=== PATIENT | male | born 1945 | race Hispanic/Latino ===

== ENCOUNTER 2022-09-15 11:33 | Inpatient (IN) | payer MEDICARE ==
[2022-09-15] VITALS (18 sets, daily range): BP systolic 74–108; BP diastolic 50–76
[~2022-09-15] VITALS: Ht 175.3 cm; Wt 63.2 kg
[2022-09-15] MEDS ORDERED: CEFTRIAXONE 1 GM VIAL IV SCH (12:00)
[2022-09-15] MEDS ORDERED: SODIUM CHLORIDE 0.9% 1000ML 1,000 ML IV ONE (12:00)
[2022-09-15 12:18] LABS: BASOPHILS % 0.2 % (0.0-1.0); EOSINOPHILS % 0.1 % (0.0-6.0); HEMATOCRIT 44.6 % (38.2-49.6); HEMOGLOBIN 14.2 g/dL (14.0-18.0); LYMPHOCYTES % 9.2 % (18.0-39.1); MEAN CORPUSCULAR HGB CONC 31.8 g/dL (31-35); MEAN CORPUSCULAR VOLUME 94.3 fL (81-99); MONOCYTES # (AUTO) 0.8 (0.2-0.8); MONOCYTES % 7.3 % (4.4-11.3); NEUTROPHILS # (AUTO) 9.1 (2.1-6.9); NEUTROPHILS % 82.7 % (38.7-80.0); PLATELET COUNT 234 x10e3/uL (140-360); RED BLOOD COUNT 4.73 x10e6/uL (4.3-5.7); RED CELL DISTRIBUTION WIDTH 14.5 % (11.7-14.4)
[2022-09-15 12:45] LABS: INR 0.94; PARTIAL THROMBOPLASTIN TIME 30.5 seconds (23.8-35.5); PROTHROMBIN TIME 13.3 seconds (11.9-14.5)
[2022-09-15 12:46] LABS: ABG PCO2 31 mmHg (35-45); ABG PH 7.44 (7.35-7.45)
[2022-09-15 12:47] LABS: ABG HCO3 21 mmol/L (22-26); ABG PO2 50 mmHg (80-105); ABG TCO2 22
[2022-09-15 12:48] LABS: ALBUMIN 3.8 g/dL (3.5-5.0); ANION GAP 23.8 mmol/L (8-16); CREATININE, SERUM 2.01 mg/dL (0.72-1.25); POTASSIUM 3.8 mmol/L (3.5-5.1)
[2022-09-15] MEDS ORDERED: METHYLPREDNISOLONE SOD SUCC 125 MG/2ML VIAL IV ONE (13:00)
[2022-09-15] MEDS ORDERED: NIRMATRELVIR/RITONAVIR 1 EACH BOX PO SCH (13:00)
[2022-09-15] MEDS ORDERED: SODIUM CHLORIDE FLUSH 10 ML SYR INJ PRN (13:45)
[2022-09-15] MEDS ORDERED: BEBTELOVIMAB 175 MG INJ IV ONE (13:45)
[2022-09-15 14:30] LABS: CLARITY,URINE SL CLOUDY (CLEAR); COLOR,URINE STRAW (YELLOW); KETONES,URINE NEGATIVE (NEGATIVE); LEUKOCYTE ESTERASE ,URINE NEGATIVE (NEGATIVE); NITRITE,URINE NEGATIVE (NEGATIVE); PROTEIN,URINE DIPSTICK 1+ (NEGATIVE); URINE UROBILINOGEN 0.2 mg/dL (0.2 - 1)
[2022-09-15 14:42] LABS: AMORPHOUS SEDIMENT,URINE MODERATE (FEW); BACTERIA,URINE MODERATE /HPF; RBC,URINE 0-5 /HPF (0-5)
[2022-09-15] MEDS ORDERED: ACETAMINOPHEN 325 MG TAB PO PRN (15:15)
[2022-09-15] MEDS ORDERED: ZOLPIDEM TARTRATE 5 MG TAB PO PRN (15:15)
[2022-09-15] MEDS ORDERED: ONDANSETRON HCL INJ 2MG/ML 2ML 2 MG/ML VIAL IV PRN (15:15)
[2022-09-15] MEDS ORDERED: DEXTROSE 50% SYRINGE 50 ML IV PRN (15:15)
[2022-09-15] MEDS ORDERED: LACTATED RINGER'S 1,000 ML INJ ONE (15:15)
[2022-09-15] MEDS: INSULIN REGULAR, HUMAN 100 UNIT/1 ML SQ SCH ×2 (16:30→21:00)
[2022-09-15] MEDS ORDERED: REMDESIVIR 200MG 200 MG in SODIUM CHLORIDE 0.9% 100 ML IV ONE (21:00)
[2022-09-15] MEDS ORDERED: MELATONIN 3 MG TAB PO PRN (21:00)
[2022-09-15] MEDS ORDERED: ALBUTEROL/IPRATROPIUM 3 ML NEB NEB PRN (21:00)
[2022-09-15] MEDS ORDERED: GUAIFENESIN/DEXTROMETHORPHAN LIQD 5 ML UDC PO PRN (21:00)
[2022-09-16] VITALS (36 sets, daily range): BP systolic 91–134; BP diastolic 52–87
[2022-09-16] MEDS ORDERED: FUROSEMIDE INJ 10 MG/ML 2 ML VIAL IV ONE (05:30)
[2022-09-16 05:49] LABS: BASOPHILS % 0.1 % (0.0-1.0); HEMOGLOBIN 11.6 g/dL (14.0-18.0); LYMPHOCYTES # (AUTO) 0.3 (1.0-3.2); LYMPHOCYTES % 4.3 % (18.0-39.1); MEAN CORPUSCULAR HEMOGLOBIN 29.4 pg (28-32); MEAN CORPUSCULAR HGB CONC 33.1 g/dL (31-35); MEAN CORPUSCULAR VOLUME 88.8 fL (81-99); MONOCYTES # (AUTO) 0.3 (0.2-0.8); MONOCYTES % 3.9 % (4.4-11.3); NEUTROPHILS # (AUTO) 6.9 (2.1-6.9); NEUTROPHILS % 91.2 % (38.7-80.0); PLATELET COUNT 237 x10e3/uL (140-360); RED BLOOD COUNT 3.94 x10e6/uL (4.3-5.7); RED CELL DISTRIBUTION WIDTH 14.4 % (11.7-14.4)
[2022-09-16 06:19] LABS: ALBUMIN 3.1 g/dL (3.5-5.0); ANION GAP 17.7 mmol/L (8-16); CALCIUM 8.2 mg/dL (8.4-10.2); CREATININE, SERUM 1.97 mg/dL (0.72-1.25); POTASSIUM 3.7 mmol/L (3.5-5.1)
[2022-09-16] MEDS: INSULIN REGULAR, HUMAN 100 UNIT/1 ML SQ SCH ×5 (07:30→21:00)
[2022-09-16] MEDS ORDERED: FUROSEMIDE INJ 10 MG/ML 4 ML VIAL IV ONE ×2 (07:45→13:45)
[2022-09-16 08:25] LABS: ABG HCO3 22 mmol/L (22-26); ABG PCO2 34 mmHg (35-45); ABG PH 7.43 (7.35-7.45); ABG PO2 55 mmHg (80-105); ABG TCO2 23
[2022-09-16] MEDS ORDERED: REMDESIVIR 200MG 200 MG in SODIUM CHLORIDE 0.9% 100 ML IV ONE (09:00)
[2022-09-16] MEDS: MULTIVITAMINS/MINERALS TAB PO SCH (09:00)
[2022-09-16] MEDS ORDERED: PHENAZOPYRIDINE HCL 100 MG TAB PO PRN (13:30)
[2022-09-16] MEDS: DEXMEDETOMIDINE 400MCG/NS100ML 100 ML IV PRN (13:38)
[2022-09-16] MEDS ORDERED: ENOXAPARIN 30 MG/0.3 ML SYR SC SCH (17:00)
[2022-09-16] MEDS: DEXAMETHASONE SOD PHOS 10 MG/1 ML VIAL IV SCH (17:03)
[2022-09-17] VITALS (31 sets, daily range): BP systolic 105–134; BP diastolic 60–111
[2022-09-17] MEDS: DEXMEDETOMIDINE 400MCG/NS100ML 100 ML IV PRN ×2 (05:28→20:07)
[2022-09-17 06:30] LABS: BASOPHILS % 0.1 % (0.0-1.0); HEMATOCRIT 37.3 % (38.2-49.6); HEMOGLOBIN 12.6 g/dL (14.0-18.0); LYMPHOCYTES # (AUTO) 0.3 (1.0-3.2); LYMPHOCYTES % 3.2 % (18.0-39.1); MEAN CORPUSCULAR HEMOGLOBIN 29.9 pg (28-32); MEAN CORPUSCULAR HGB CONC 33.8 g/dL (31-35); MEAN CORPUSCULAR VOLUME 88.4 fL (81-99); MONOCYTES # (AUTO) 0.5 (0.2-0.8); MONOCYTES % 5.1 % (4.4-11.3); NEUTROPHILS # (AUTO) 8.8 (2.1-6.9); NEUTROPHILS % 91.2 % (38.7-80.0); PLATELET COUNT 278 x10e3/uL (140-360); RED BLOOD COUNT 4.22 x10e6/uL (4.3-5.7); RED CELL DISTRIBUTION WIDTH 14.4 % (11.7-14.4)
[2022-09-17 07:01] LABS: ALBUMIN 3.1 g/dL (3.5-5.0); ALBUMIN/GLOBULIN RATIO 0.9 (0.8-2.0); ANION GAP 18.1 mmol/L (8-16); CALCIUM 8.3 mg/dL (8.4-10.2); CREATININE, SERUM 1.98 mg/dL (0.72-1.25); POTASSIUM 3.1 mmol/L (3.5-5.1)
[2022-09-17] MEDS: INSULIN REGULAR, HUMAN 100 UNIT/1 ML SQ SCH ×4 (07:30→21:00)
[2022-09-17 08:43] LABS: LYMPHOCYTES % (MANUAL) 1 % (19-48); MONOCYTES % (MANUAL) 1 % (3.4-9.0); NEUTROPHILS % (MANUAL) 98 % (40-74); PLATELET ESTIMATE ADEQUATE; PLATELET MORPHOLOGY COMMENT NORMAL; RBC MORPHOLOGY COMMENT NORMAL
[2022-09-17] MEDS ORDERED: FUROSEMIDE INJ 10 MG/ML 4 ML VIAL IV SCH (09:00)
[2022-09-17] MEDS: MULTIVITAMINS/MINERALS TAB PO SCH (09:00)
[2022-09-17] MEDS ORDERED: POTASSIUM CHLORIDE 20MEQ/100ML 100 ML IV ONE (09:30)
[2022-09-17] MEDS ORDERED: DEXTROSE 5% 1,000 ML IV ONE ×2 (09:30→16:15)
[2022-09-17 09:37] LABS: ABG HCO3 26 mmol/L (22-26); ABG PCO2 35 mmHg (35-45); ABG PH 7.48 (7.35-7.45); ABG PO2 56 mmHg (80-105); ABG TCO2 27
[2022-09-17] MEDS: REMDESIVIR 100MG 100 MG in SODIUM CHLORIDE 0.9% 100 ML IV SCH (09:45)
[2022-09-17 14:59] LABS: CREATININE,URINE RANDOM 32.85 mg/dL (63-166); TOTAL PROTEIN, URINE 15.7 mg/dL (1-14)
[2022-09-17] MEDS ORDERED: FUROSEMIDE INJ 10 MG/ML 4 ML VIAL IV ONE (16:15)
[2022-09-17] MEDS ORDERED: HEPARIN 25,000 UNIT 1,200 UNIT in DEXTROSE 5% 250ML 250 ML IV SCH (16:15)
[2022-09-17] MEDS ORDERED: METHYLPREDNISOLONE SOD SUCC 40 MG/ML VIAL 1ML IV ONE (16:15)
[2022-09-17] MEDS: DEXAMETHASONE SOD PHOS 10 MG/1 ML VIAL IV SCH (16:49)
[2022-09-17] MEDS ORDERED: HEPARIN SOD (PORCINE) 5,000 UNIT/ML VIAL IV ONE (17:00)
[2022-09-17] MEDS: HEPARIN 25,000 UNIT 1,100 UNIT in DEXTROSE 5% 250ML 250 ML IV SCH (17:04)
[2022-09-17 17:06] LABS: INR 1.16; PARTIAL THROMBOPLASTIN TIME 35.9 seconds (23.8-35.5)
[2022-09-18] VITALS (25 sets, daily range): BP systolic 95–164; BP diastolic 72–119
[2022-09-18 06:45] LABS: BASOPHILS % 0.1 % (0.0-1.0); HEMATOCRIT 40.4 % (38.2-49.6); HEMOGLOBIN 12.9 g/dL (14.0-18.0); LYMPHOCYTES # (AUTO) 0.2 (1.0-3.2); LYMPHOCYTES % 2.1 % (18.0-39.1); MEAN CORPUSCULAR HEMOGLOBIN 29.3 pg (28-32); MEAN CORPUSCULAR HGB CONC 31.9 g/dL (31-35); MEAN CORPUSCULAR VOLUME 91.8 fL (81-99); MONOCYTES # (AUTO) 0.5 (0.2-0.8); MONOCYTES % 5.1 % (4.4-11.3); NEUTROPHILS # (AUTO) 9.1 (2.1-6.9); NEUTROPHILS % 92.3 % (38.7-80.0); PLATELET COUNT 263 x10e3/uL (140-360); RED CELL DISTRIBUTION WIDTH 14.2 % (11.7-14.4)
[2022-09-18 07:01] LABS: ALBUMIN/GLOBULIN RATIO 0.9 (0.8-2.0); ANION GAP 18.1 mmol/L (8-16); CALCIUM 8.1 mg/dL (8.4-10.2); CREATININE, SERUM 1.91 mg/dL (0.72-1.25); POTASSIUM 3.1 mmol/L (3.5-5.1)
[2022-09-18] MEDS ORDERED: DEXTROSE 5% 500ML 500 ML IV ONE (08:00)
[2022-09-18] MEDS: POTASSIUM CHLORIDE 20MEQ/100ML 100 ML IV SCH ×2 (08:16→10:19)
[2022-09-18] MEDS: DEXMEDETOMIDINE 400MCG/NS100ML 100 ML IV PRN ×4 (08:18→20:06)
[2022-09-18] MEDS: INSULIN REGULAR, HUMAN 100 UNIT/1 ML SQ SCH ×4 (08:42→21:00)
[2022-09-18] MEDS: REMDESIVIR 100MG 100 MG in SODIUM CHLORIDE 0.9% 100 ML IV SCH (08:59)
[2022-09-18] MEDS: MULTIVITAMINS/MINERALS TAB PO SCH (09:00)
[2022-09-18] MEDS ORDERED: LORAZEPAM INJ 2 MG/ML VIAL IV ONE (11:45)
[2022-09-18] MEDS ORDERED: HYDRALAZINE HCL 20 MG/ML VIAL IV PRN (12:00)
[2022-09-18] MEDS: HEPARIN 25,000 UNIT 1,100 UNIT in DEXTROSE 5% 250ML 250 ML IV SCH (16:30)
[2022-09-18] MEDS: DEXAMETHASONE SOD PHOS 10 MG/1 ML VIAL IV SCH (17:00)
[2022-09-18] MEDS: LORAZEPAM INJ 2 MG/ML VIAL IV PRN (17:23)
[2022-09-18] MEDS ORDERED: DEXTROSE 5% 1,000 ML IV SCH (20:15)
[2022-09-18] MEDS: ATORVASTATIN 10 MG TAB PO SCH (21:00)
[2022-09-19] VITALS (25 sets, daily range): BP systolic 79–142; BP diastolic 49–94
[2022-09-19] MEDS: LORAZEPAM INJ 2 MG/ML VIAL IV PRN ×3 (01:30→17:05)
[2022-09-19 07:05] LABS: BASOPHILS % 0.1 % (0.0-1.0); HEMATOCRIT 41.6 % (38.2-49.6); LYMPHOCYTES # (AUTO) 0.7 (1.0-3.2); MEAN CORPUSCULAR HEMOGLOBIN 29.6 pg (28-32); MEAN CORPUSCULAR HGB CONC 31.3 g/dL (31-35); MEAN CORPUSCULAR VOLUME 94.8 fL (81-99); MONOCYTES # (AUTO) 0.4 (0.2-0.8); NEUTROPHILS # (AUTO) 9.2 (2.1-6.9); NEUTROPHILS % 88.1 % (38.7-80.0); PLATELET COUNT 239 x10e3/uL (140-360); RED BLOOD COUNT 4.39 x10e6/uL (4.3-5.7); RED CELL DISTRIBUTION WIDTH 14.6 % (11.7-14.4)
[2022-09-19] MEDS: INSULIN REGULAR, HUMAN 100 UNIT/1 ML SQ SCH ×4 (07:30→20:26)
[2022-09-19 07:36] LABS: ALBUMIN 1.7 g/dL (3.5-5.0); ALBUMIN/GLOBULIN RATIO 0.6 (0.8-2.0); ANION GAP 13.6 mmol/L (8-16); CREATININE, SERUM 1.22 mg/dL (0.72-1.25)
[2022-09-19 07:39] LABS: CALCIUM 5.9 mg/dL (8.4-10.2); POTASSIUM 2.6 mmol/L (3.5-5.1)
[2022-09-19] MEDS: METOPROLOL SUCCINATE 25 MG TAB XL PO SCH (08:06)
[2022-09-19] MEDS: ASPIRIN 81 MG CHEW TAB PO SCH (08:06)
[2022-09-19] MEDS: MULTIVITAMINS/MINERALS TAB PO SCH (08:06)
[2022-09-19] MEDS: POTASSIUM CHLORIDE 20MEQ/100ML 100 ML IV SCH ×2 (08:56→11:50)
[2022-09-19] MEDS: REMDESIVIR 100MG 100 MG in SODIUM CHLORIDE 0.9% 100 ML IV SCH (08:56)
[2022-09-19] MEDS: DEXMEDETOMIDINE 400MCG/NS100ML 100 ML IV PRN ×4 (09:40→21:56)
[2022-09-19] MEDS: DEXTROSE 5% 1,000 ML IV SCH ×2 (11:50→22:05)
[2022-09-19] MEDS: Morphine 2mg Syringe 2 MG/ML SYR IV PRN ×3 (12:07→22:40)
[2022-09-19] MEDS: DEXAMETHASONE SOD PHOS 10 MG/1 ML VIAL IV SCH (17:05)
[2022-09-19] MEDS ORDERED: DEXTROSE 5% 1,000 ML IV ONE (17:15)
[2022-09-19] MEDS ORDERED: CALCIUM CHLORIDE 13.6 MEQ in SODIUM CHLORIDE 0.9% 100 ML IV ONE (17:30)
[2022-09-19] MEDS: ATORVASTATIN 10 MG TAB PO SCH (20:31)
[2022-09-19] MEDS: HEPARIN 25,000 UNIT 1,100 UNIT in DEXTROSE 5% 250ML 250 ML IV SCH (20:48)
[2022-09-20] VITALS (23 sets, daily range): BP systolic 64–124; BP diastolic 30–74
[2022-09-20] MEDS: LORAZEPAM INJ 2 MG/ML VIAL IV PRN ×4 (00:59→20:52)
[2022-09-20] MEDS: DEXMEDETOMIDINE 400MCG/NS100ML 100 ML IV PRN ×6 (01:11→20:57)
[2022-09-20] MEDS: DEXTROSE 5% 1,000 ML IV SCH (01:58)
[2022-09-20] MEDS: HEPARIN 25,000 UNIT 1,100 UNIT in DEXTROSE 5% 250ML 250 ML IV SCH (03:33)
[2022-09-20] MEDS: Morphine 2mg Syringe 2 MG/ML SYR IV PRN ×3 (04:50→19:19)
[2022-09-20 07:11] LABS: HEMATOCRIT 35.8 % (38.2-49.6); HEMOGLOBIN 10.6 g/dL (14.0-18.0); LYMPHOCYTES # (AUTO) 0.2 (1.0-3.2); LYMPHOCYTES % 2.5 % (18.0-39.1); MEAN CORPUSCULAR HEMOGLOBIN 29.3 pg (28-32); MEAN CORPUSCULAR HGB CONC 29.6 g/dL (31-35); MEAN CORPUSCULAR VOLUME 98.9 fL (81-99); MONOCYTES # (AUTO) 0.3 (0.2-0.8); MONOCYTES % 3.3 % (4.4-11.3); NEUTROPHILS # (AUTO) 7.8 (2.1-6.9); NEUTROPHILS % 93.6 % (38.7-80.0); PLATELET COUNT 228 x10e3/uL (140-360); RED BLOOD COUNT 3.62 x10e6/uL (4.3-5.7); RED CELL DISTRIBUTION WIDTH 15.2 % (11.7-14.4)
[2022-09-20 07:30] LABS: ALBUMIN 1.8 g/dL (3.5-5.0); ALBUMIN/GLOBULIN RATIO 0.5 (0.8-2.0); CALCIUM 8.5 mg/dL (8.4-10.2); CREATININE, SERUM 1.68 mg/dL (0.72-1.25)
[2022-09-20] MEDS: INSULIN REGULAR, HUMAN 100 UNIT/1 ML SQ SCH ×2 (08:16→11:30)
[2022-09-20] MEDS: REMDESIVIR 100MG 100 MG in SODIUM CHLORIDE 0.9% 100 ML IV SCH (08:20)
[2022-09-20] MEDS: METOPROLOL SUCCINATE 25 MG TAB XL PO SCH (09:00)
[2022-09-20] MEDS: ASPIRIN 81 MG CHEW TAB PO SCH (09:00)
[2022-09-20] MEDS: MULTIVITAMINS/MINERALS TAB PO SCH (09:00)
[2022-09-20] MEDS: DEXAMETHASONE SOD PHOS 10 MG/1 ML VIAL IV SCH (17:30)
[2022-09-20] MEDS: ATORVASTATIN 10 MG TAB PO SCH (20:18)
[2022-09-21] VITALS (14 sets, daily range): BP systolic 44–147; BP diastolic 18–60
[2022-09-21] MEDS: DEXMEDETOMIDINE 400MCG/NS100ML 100 ML IV PRN ×2 (01:32→06:39)
[2022-09-21] MEDS: Morphine 2mg Syringe 2 MG/ML SYR IV PRN ×2 (02:17→07:46)
[2022-09-21] MEDS: LORAZEPAM INJ 2 MG/ML VIAL IV PRN (08:08)
== END 2022-09-21 12:30 | disposition expired | DRG 871 ==
LOC: ER 11:39 → ERHOLD 13:44 → ICU 18:02
PROVIDERS: ADMIT Internal Medicine; ATTEND Internal Medicine
PROC: 5A09557 Assistance with Respiratory Ventilation, Greater than 96 Consecutive Hours, Continuous Positive Airway Pressure (ICD-10-PCS; principal; 2022-09-15)
PROC: 8E0ZXY6 Isolation (ICD-10-PCS; 2022-09-15)
PROC: 02HV33Z Insertion of Infusion Device into Superior Vena Cava, Percutaneous Approach (ICD-10-PCS; 2022-09-15)
PROC: XW043E5 Introduction of Remdesivir Anti-infective into Central Vein, Percutaneous Approach, New Technology Group 5 (ICD-10-PCS; 2022-09-16)
PROC: 3E0132A Introduction of Anti-Infective Envelope into Subcutaneous Tissue, Percutaneous Approach (ICD-10-PCS; 2022-09-16)
DX: A41.89 Other specified sepsis (principal); I50.23 Acute on chronic systolic (congestive) heart failure; J12.82 Pneumonia due to coronavirus disease 2019; U07.1 COVID-19; J15.9 Unspecified bacterial pneumonia; R65.21 Severe sepsis with septic shock; N17.9 Acute kidney failure, unspecified; E87.20 Acidosis, unspecified; J44.0 Chronic obstructive pulmonary disease with (acute) lower respiratory infection; I42.9 Cardiomyopathy, unspecified; I13.0 Hypertensive heart and chronic kidney disease with heart failure and stage 1 through stage 4 chronic kidney disease, or unspecified chronic kidney disease; J44.1 Chronic obstructive pulmonary disease with (acute) exacerbation; E87.0 Hyperosmolality and hypernatremia; Z66 Do not resuscitate; Z51.5 Encounter for palliative care; I25.10 Atherosclerotic heart disease of native coronary artery without angina pectoris; Z95.5 Presence of coronary angioplasty implant and graft; E78.5 Hyperlipidemia, unspecified; E03.9 Hypothyroidism, unspecified; I25.2 Old myocardial infarction; Z95.810 Presence of automatic (implantable) cardiac defibrillator; J44.9 Chronic obstructive pulmonary disease, unspecified; Z95.1 Presence of aortocoronary bypass graft; N18.30 Chronic kidney disease, stage 3 unspecified; E11.22 Type 2 diabetes mellitus with diabetic chronic kidney disease; Z79.4 Long term (current) use of insulin; D64.9 Anemia, unspecified; E87.6 Hypokalemia; E83.51 Hypocalcemia; E11.65 Type 2 diabetes mellitus with hyperglycemia
CPT/HCPCS: 36415; 36569; 36600; 71045; 76604; 76770; 80053; 81001; 82570; 82805; 82948; 83036; 83605; 83880; 84156; 85025; 85610; 85730; 87040; 87086; 87400; 93005; 94640; 94660; 94799; 96372; 99251; 99284; J0248; J0360; J0456; J0696; J1100; J1644; J1650; J1817; J1940; J2060; J2270; J2405; J2920; J2930; J3480; J7050; J7060; J7070; J7121